=== PATIENT | female | born 1960 | race Caucasian/White ===

== ENCOUNTER → 2021-10-19 | Outpatient (CLI) | payer BC ==
[~2021-10-19] MED LIST: BUSPAR15 MG PO; CYMBALTA60 M1 PO; METFORMIN1000 MG PO; NEURONTIN100 MG PO; NITROFURANTOIN100 MG PO; TRAMADOL50 MG PO; ULTRAM50 MG PO; VITAMIN D32000 I1 PO; Zofran4 MG PO
== END ==
LOC: RESCLI 08:28
PROVIDERS: ATTEND Internal Medicine
DX: E11.9 Type 2 diabetes mellitus without complications (principal); B37.3 Candidiasis of vulva and vagina; E03.9 Hypothyroidism, unspecified; F32.A Depression, unspecified; M79.7 Fibromyalgia; Z79.4 Long term (current) use of insulin; Z90.711 Acquired absence of uterus with remaining cervical stump; Z79.899 Other long term (current) drug therapy

== ENCOUNTER → 2022-10-19 | Outpatient (CLI) | payer BC | END | disposition home or self-care (01) | LOC: RESCLI 01:36 | PROVIDERS: ATTEND Internal Medicine | DX: E11.9 Type 2 diabetes mellitus without complications (principal); F32.9 Major depressive disorder, single episode, unspecified; F41.9 Anxiety disorder, unspecified; E03.9 Hypothyroidism, unspecified; M25.50 Pain in unspecified joint; Z00.00 Encounter for general adult medical examination without abnormal findings; Z98.890 Other specified postprocedural states; Z90.710 Acquired absence of both cervix and uterus; Z88.2 Allergy status to sulfonamides; Z88.1 Allergy status to other antibiotic agents; Z79.899 Other long term (current) drug therapy ==

== ENCOUNTER → 2023-10-24 | Outpatient (CLI) | payer BC | END | disposition home or self-care (01) | LOC: RESCLI 10:14 | PROVIDERS: ATTEND Student in an Organized Health Care Education/Training Program | DX: E11.9 Type 2 diabetes mellitus without complications (principal); F41.9 Anxiety disorder, unspecified; F32.9 Major depressive disorder, single episode, unspecified; E03.9 Hypothyroidism, unspecified; M79.7 Fibromyalgia; B37.31 Acute candidiasis of vulva and vagina; Z88.2 Allergy status to sulfonamides; Z88.8 Allergy status to other drugs, medicaments and biological substances; Z79.899 Other long term (current) drug therapy ==

== ENCOUNTER 2025-09-03 04:41 | Emergency (ER) | payer MEDICAID ==
[~2025-09-03] VITALS: Ht 162.5 cm; Wt 104.3 kg
[~2025-09-03 04:41] MED LIST changes: +ACTOS45 M1 PO; +CEPHALEXIN500 M1 PO; +CYMBALTA60 MG PO; +DICLOFENAC SOD75 MG PO; +FLUONAZOLE150 M1 PO; +LASIX20 MG PO; +LEVEMIR100 UNIT/1 SC; +PROZAC20 MG PO; +UNITHROID50 MCG PO
[2025-09-03 05:04] VITALS: BP 144/68
[2025-09-03 05:50] LABS: BUN 25 mg/dl (9-23)
[2025-09-03 06:00] LABS: BASO # 0.0 10*3/uL (0.0-0.1); BASO % 0.5 % (0.0-1.0); EOS # 0.2 10*3/uL (0.0-0.4); EOS % 3.0 % (1.0-4.0); MEAN CELL VOLUME 95.7 fl (81.0-99.0); MEAN CORPUSCULAR HGB 30.7 pg (27.0-31.0); MEAN PLATELET VOLUME 10.8 fl (9.6-12.3); MONO # 0.4 10*3/uL (0.1-1.0); MONO % 4.9 % (3.0-9.0); NEUT # 5.3 10*3/uL (2.3-7.9); NEUT % 69.9 % (47.0-73.0); NUCLEATED RED BLOOD CELL 0.0 % (0.0-0.0); NUCLEATED RED BLOOD CELL 0.0 10*3/uL (0.0-0.0); PLATELET COUNT AUTOMATED 253 10*3/uL (130-400); RED CELL DISTRI WIDTH 13.8 % (0-14.5)
[2025-09-03] MEDS ORDERED: LORazepam 1 MG TAB PO ONE (06:05)
== END 2025-09-03 06:40 | disposition home or self-care (01) ==
LOC: ED 04:41
PROVIDERS: Internal Medicine
DX: E11.65 Type 2 diabetes mellitus with hyperglycemia (principal); R25.2 Cramp and spasm; N17.9 Acute kidney failure, unspecified; F41.9 Anxiety disorder, unspecified; Z90.710 Acquired absence of both cervix and uterus; Z90.89 Acquired absence of other organs; Z88.8 Allergy status to other drugs, medicaments and biological substances